=== PATIENT | female | born 1945 | race Caucasian/White ===

== ENCOUNTER → 2020-03-30 | Outpatient (CLI) | payer MEDICARE, OTHER ==
[~2020-03-30] MED LIST: ACET325 PO; CHOL10002; CHOL10002 PO; CREON DR 6,0001 EACH PO; CYAN500 PO; DIPATR PO; IBUP400 PO; OMEPRAZOLE MAGN20 MG PO; Omeprazole20 M1; PSYL5.85P PO; SENN187 PO; THIA100 PO; UBID10; UBID100 PO; Zofran Odt4 MG PO
== END | disposition home or self-care (01) ==
LOC: LAB SHORT 15:16 → LAB 15:16
DX: N39.0 Urinary tract infection, site not specified (principal)
CPT/HCPCS: 87077; 87086; 87186

== ENCOUNTER → 2020-05-11 | Outpatient (CLI) | payer MEDICARE, OTHER ==
[2020-05-11 09:19] LABS: Source, Urine Clean Catch
[2020-05-11 10:16] LABS: Appearance, Urine Clear (Clear); Bilirubin, Urine Neg (Neg); Blood, Urine 1+ (Neg); Color, Urine Yellow (P-Yellow); Glucose Qualitative, Urine Neg (Neg); Ketones, Urine Neg (Neg); Leukocyte Esterase, Urine 1+ (Neg); Nitrite, Urine Neg (Neg); Protein, Urine Neg (Neg); Specific Gravity, Urine 1.015 (1.003-1.022); Urobilinogen, Urine 2+ (Normal)
[2020-05-11 10:51] LABS: Bacteria Mod /hpf; Squamous Epithelial Cells Mod /hpf (Few)
[2020-05-11 10:53] LABS: Red Blood Cells, Urine 0-2 /hpf (0-2)
== END | disposition home or self-care (01) ==
LOC: LAB SHORT 09:11 → LAB 09:11
PROVIDERS: Internal Medicine
DX: R32 Unspecified urinary incontinence (principal)
CPT/HCPCS: 81001; 87077; 87086; 87186

== ENCOUNTER → 2020-05-19 | Outpatient (CLI) | payer MEDICARE, OTHER ==
[2020-05-19 09:28] LABS: Source, Urine Clean Catch
[2020-05-19 11:09] LABS: Appearance, Urine Clear (Clear); Bilirubin, Urine Neg (Neg); Blood, Urine Neg (Neg); Color, Urine Yellow (P-Yellow); Glucose Qualitative, Urine Neg (Neg); Ketones, Urine Neg (Neg); Leukocyte Esterase, Urine 1+ (Neg); Nitrite, Urine Neg (Neg); Protein, Urine Neg (Neg); Urobilinogen, Urine 1+ (Normal); pH, Urine 6.5 (5.0-8.0)
[2020-05-19 12:06] LABS: Bacteria Rare /hpf; Red Blood Cells, Urine 0-2 /hpf (0-2); Squamous Epithelial Cells Rare /hpf (Few)
== END | disposition home or self-care (01) ==
LOC: LAB 09:26 → LAB SHORT 09:26 → LAB FUT 05-17 17:00
PROVIDERS: Internal Medicine
DX: R37 Sexual dysfunction, unspecified (principal)
CPT/HCPCS: 81001; 87077; 87086; 87147; 87186

== ENCOUNTER 2021-12-20 15:24 | Emergency (ER) | payer MEDICARE, OTHER ==
[~2021-12-20] VITALS: Ht 162.6 cm; Wt 89.4 kg
== END 2021-12-20 16:49 | disposition left against medical advice (07) ==
LOC: ER 15:24
DX: M54.9 Dorsalgia, unspecified (principal); Z79.899 Other long term (current) drug therapy; Z53.21 Procedure and treatment not carried out due to patient leaving prior to being seen by health care provider
CPT/HCPCS: 99282

== ENCOUNTER → 2021-12-28 | Outpatient (CLI) | payer MEDICARE, OTHER ==
[2021-12-28 14:46] LABS: Source, Urine Clean Catch
[2021-12-28 18:02] LABS: Appearance, Urine Clear (Clear); Bilirubin, Urine Neg (Neg); Blood, Urine Neg (Neg); Color, Urine Yellow (P-Yellow); Glucose Qualitative, Urine Neg (Neg); Ketones, Urine Neg (Neg); Leukocyte Esterase, Urine Neg (Neg); Nitrite, Urine Neg (Neg); Protein, Urine Neg (Neg); Specific Gravity, Urine 1.015 (1.003-1.022); Urobilinogen, Urine NORM (Normal)
== END | disposition home or self-care (01) ==
LOC: LAB SHORT 14:45
PROVIDERS: Internal Medicine
DX: N39.0 Urinary tract infection, site not specified (principal)
CPT/HCPCS: 81003

== ENCOUNTER 2024-08-26 11:24 | Day surgery (SDC) | payer MEDICARE, OTHER ==
[~2024-08-26] VITALS: Ht 162.6 cm; Wt 91.0 kg
[~2024-08-26 11:24] MED LIST changes: +Balanced Salt Epinephrine Irrigation Solution 500 mL IR SCH; +Moxifloxacin HCL 0.5 MG/0.1 ML 0.4MLSYR RIGHTEYE SCH; +Ondansetron 4 MG SoluTab MM PRN; +PHENYLEPHRINE\\TROPICAMIDE\\TETRACAINE OPHTHALMIC DILATING SOLN RIGHTEYE PRN; +Povidone-Iodine 450 DROP/30 ML Solution ONE; +Povidone-Iodine 450 DROP/30 ML Solution RIGHTEYE SCH; +Tetracaine HCl/Pf 0.5% Opth Soln 4 ml ONE
[2024-08-26] MEDS ORDERED: Crestor40 MG PO (12:10)
[2024-08-26] MEDS ORDERED: LOSA50 PO (12:11)
[2024-08-26] MEDS ORDERED: ESCI10 PO (12:11)
[2024-08-26] MEDS ORDERED: CATAPRES0.1 MG PO (12:22)
[2024-08-26] MEDS ORDERED: CODACE30 PO (12:22)
[2024-08-26] MEDS ORDERED: URSO300 PO (12:22)
[2024-08-26] MEDS ORDERED: ASPI81CH PO (12:23)
[2024-08-26] MEDS ORDERED: Tetracaine HCl 0.5% Opth Soln 15 ml RIGHTEYE ONE (12:30)
[2024-08-26 13:11] VITALS: BP 149/90
== END 2024-08-26 13:09 | disposition home or self-care (01) ==
LOC: ORSCSDS 11:24
PROVIDERS: Student in an Organized Health Care Education/Training Program
PROC: 08RJ3JZ Replacement of Right Lens with Synthetic Substitute, Percutaneous Approach (ICD-10-PCS; principal; 2024-08-26 13:00)
DX: H25.813 Combined forms of age-related cataract, bilateral (principal); I12.9 Hypertensive chronic kidney disease with stage 1 through stage 4 chronic kidney disease, or unspecified chronic kidney disease; N18.9 Chronic kidney disease, unspecified; Z79.82 Long term (current) use of aspirin; Z79.899 Other long term (current) drug therapy
CPT/HCPCS: A9270; V2632

== ENCOUNTER 2024-09-02 08:24 | Day surgery (SDC) | payer MEDICARE, OTHER ==
[~2024-09-02] VITALS: Ht 162.6 cm; Wt 91.5 kg
[~2024-09-02 08:24] MED LIST changes: +ASPI81CH PO; +CATAPRES0.1 MG PO; +CODACE30 PO; +Crestor40 MG PO; +ESCI10 PO; +LOSA50 PO; +Moxifloxacin HCL 0.5 MG/0.1 ML 0.4MLSYR LEFTEYE SCH; -Moxifloxacin HCL 0.5 MG/0.1 ML 0.4MLSYR RIGHTEYE SCH; +PHENYLEPHRINE\\TROPICAMIDE\\TETRACAINE OPHTHALMIC DILATING SOLN LEFTEYE PRN; -PHENYLEPHRINE\\TROPICAMIDE\\TETRACAINE OPHTHALMIC DILATING SOLN RIGHTEYE PRN; +Povidone-Iodine 450 DROP/30 ML Solution LEFTEYE SCH; -Povidone-Iodine 450 DROP/30 ML Solution RIGHTEYE SCH; +URSO300 PO
--- NOTE | 2024-09-02 09:11 | NUR ---
09/02/24 0911 Francoise Valdez PT REPORTS ANXIETY LEVEL AT 02/27 PRIOR TO ADMINISTRATION OF VALIUM 10MG PO @ [phone].
[2024-09-02] MEDS ORDERED: Voltaren100 GM TOP (09:14)
--- NOTE | 2024-09-02 10:02 | NUR ---
09/02/24 1002 Ashley June HR: 56 RR: 16 BP: 128/73 SPO2: 97% ON BLOW BY O2
[2024-09-02 10:17] VITALS: BP 124/77
--- NOTE | 2024-09-02 10:34 | NUR ---
09/02/24 1034 FallonAdi orr PT REPORTS A MANAGEABLE LEVEL OF PAIN AND DENIES NAUSEA. PT AGREEABLE TO D/C HOME.
== END 2024-09-02 10:34 | disposition home or self-care (01) ==
LOC: ORSCSDS 08:24
PROVIDERS: Student in an Organized Health Care Education/Training Program
PROC: 08RK3JZ Replacement of Left Lens with Synthetic Substitute, Percutaneous Approach (ICD-10-PCS; principal; 2024-09-02 10:00)
DX: H25.812 Combined forms of age-related cataract, left eye (principal); Z96.1 Presence of intraocular lens; Z87.891 Personal history of nicotine dependence; I12.9 Hypertensive chronic kidney disease with stage 1 through stage 4 chronic kidney disease, or unspecified chronic kidney disease; N18.9 Chronic kidney disease, unspecified; Z79.899 Other long term (current) drug therapy
CPT/HCPCS: A9270; V2632